=== PATIENT | male | born 1945 | race Caucasian/White ===

== ENCOUNTER → 2023-03-26 07:39 | Outpatient (CLI) | payer OTHER, SELFPAY ==
--- NOTE | 2023-03-26 07:45 | DI.ECHO.S_ITS ---
[facility] +---------+ : : [address] : : : : [id number] : : : : Phone: [phone]+ Echocardiogram Report + + :Name: KONSTANTIN LIN Study Date: 03/26/2023 Height: 72 in : :[facility] ReadingLocation: Weight: 230 lb : : Gender: Male BSA: 2.3 m2 : :: 1945 Age: 78 yrs BP: 164/95 mmHg: :Reason For Study: Heart Disease : :Ordering Physician: SPENCER, : :BIB Performed By: Angie Marie : :Referring: BIB PALMER : + + Interpretation Summary 1) Mildly increased left ventricular thickness (concentric) with normal size and mildly reduced systolic function (EF 45-50%). 2) Normal right ventricular size and function. 3) A 25mm MagnaEase bioprosthetic aortic valve is present that is well seated and opens well (mean gradient 8mmHg). Aortic Valve: A 25mm MagnaEase aortic valve is present. The peak aortic velocity is 1.86 m/sec. The aortic valve mean gradient is 8 mmHg. 4) No prior Echo available for comparison. Procedure: A two-dimensional transthoracic echocardiogram with color flow and Doppler was performed. The study quality was technically adequate. There is no prior echocardiogram noted for this patient. The patient was in normal sinus rhythm during the exam. Left Ventricle: The left ventricle is normal in size. Left ventricular wall thickness is mildly increased. The ejection fraction is estimated to be 45- 50%. Diastolic parameters suggest a relaxation abnormality of the left ventricle, consistent with probable normal filling pressures. Right Ventricle: The right ventricle is normal size. The right ventricular systolic function is normal. Atria: The left atrial size is normal. Right atrial size is normal. There is no Doppler evidence for an interatrial shunt. Mitral Valve: The mitral valve leaflets are slightly calcified. There is no mitral valve stenosis. There is mild mitral regurgitation. Aortic Valve: A 25mm MagnaEase aortic valve is present. The peak aortic velocity is 1.86 m/sec. The aortic valve mean gradient is 8 mmHg. No aortic regurgitation is present. Tricuspid Valve: The tricuspid valve is normal. There is no tricuspid stenosis. There is trace tricuspid regurgitation. Pulmonary artery pressures cannot be estimated because of the lack of a measurable TR jet velocity. Pulmonic Valve: The pulmonic valve leaflets are thin and pliable; valve motion is normal. There is no pulmonic valvular stenosis. There is no pulmonic valvular regurgitation. Great Vessels: The ascending aorta is normal in size. The pulmonary artery is normal size. The IVC is of normal diameter and collapses greater than 50% with a sniff. This suggests a low right atrial pressure of 3 mm Hg. Pericardium/ Pleura There is no pericardial effusion. There is no pleural effusion. MMode/2D Measurements & Calculations LVIDd: 4.9 cm LVOT diam: 2.3 cm LVIDs: 4.2 cm asc Aorta Diam: 3.4 cm FS: 14.3 % IVSd: 1.4 cm LVPWd: 1.2 cm LV barnes. diameter/BSA (cm/m^2): 2.2 LV sys. diameter/BSA (cm/m^2): 1.9 LA A2 area: 17.1 cm2 RA long axis: 4.3 cm LA A4 area: 20.2 cm2 RA area: 11.7 cm2 LA length (vol): 5.2 cm RA vol: 27.4 ml LA vol: 56.0 ml RA : 12.1 ml/m2 LA vol index: 24.8 ml/m2 RVD1 (basal): 3.9 cm LVLs ap4: 7.2 cm LVLd ap2: 7.8 cm TAPSE_phl: 1.8 cm LVLs ap2: 6.9 cm Doppler Measurements & Calculations Ao V2 max: 186.0 cm/sec LVOT Max Rodrigue: 63.3 cm/sec Ao V2 mean: 138.0 cm/sec LV V1 max P.6 mmHg Ao max P.0 mmHg LV V1 VTI: 12.3 cm Ao mean P.0 mmHg TERI(I,D): 1.3 cm2 Ao V2 VTI: 39.4 cm TERI(V,D): 1.4 cm2 sev ratio: 0.31 TERI indexed to BSA (cm^2/m^2): 0.57 MV E max rodrigue: 112.0 cm/sec PA V2 max: 76.5 cm/sec MV A max rodrigue: 109.0 cm/sec PA V2 mean: 58.9 cm/sec MV E/A: 1.0 PA mean P.0 mmHg Lat Peak E' Rodrigue: 6.5 cm/sec PA pr(Accel): 18.2 mmHg E/E' lat: 17.3 MV dec time: 0.10 sec MVA(VTI): 2.0 cm2 MV V2 mean: 73.1 cm/sec SV(LVOT): 51.1 ml MV mean P.4 mmHg MV V2 VTI: 25.5 cm AV VR_phl: 0.34 MV P1/2t-pr_phl: 30.0 msec TERI(VTI)/BSA_phl: 0.58 Reading Physician:03:12 PM
== END ==
PROVIDERS: Referring Provider Chiropractor; Visit Provider Chiropractor
DX: I34.0 Nonrheumatic mitral (valve) insufficiency (principal); I51.9 Heart disease, unspecified
CPT/HCPCS: 93306